=== PATIENT | female | born 1990 | race Two or more races ===

== ENCOUNTER 2024-01-13 12:20 | Emergency (ER) | payer OTHER ==
[~2024-01-13] VITALS: Ht 157.5 cm; Wt 95.5 kg
[2024-01-13 12:31] VITALS: TEMP 97.5
[2024-01-13] MEDS: IBUPROFEN 600 MG TABLET PO ONE (14:31)
[2024-01-13] MEDS: METHOCARBAMOL 500 MG TABLET PO ONE (14:31)
[2024-01-13] MEDS: ACETAMINOPHEN 500 MG TABLET PO ONE (14:31)
[2024-01-13] MEDS ORDERED: ACET-66 PO (16:52)
[2024-01-13] MEDS ORDERED: METH-659 PO (16:52)
[2024-01-13] MEDS ORDERED: IBUP-1554 PO (16:52)
[2024-01-13 17:00] VITALS: BP 133/71; PULSE 88; RESP 14; O2SAT 98
== END 2024-01-13 17:26 | disposition home or self-care (01) ==
LOC: EMS 12:20
DX: S39.012A Strain of muscle, fascia and tendon of lower back, initial encounter (principal); S20.212A Contusion of left front wall of thorax, initial encounter; S50.12XA Contusion of left forearm, initial encounter; J45.909 Unspecified asthma, uncomplicated; Z98.890 Other specified postprocedural states; W19.XXXA Unspecified fall, initial encounter; Y93.89 Activity, other specified; Y92.89 Other specified places as the place of occurrence of the external cause; Y99.8 Other external cause status
CPT/HCPCS: 71101; 72170; 99284; 73090-TC; 73110-TC; Z7502; Z7610